=== PATIENT | female | born 1965 | race Two or more races ===

== ENCOUNTER 2019-11-08 07:50 | Day surgery (SDC) | payer OTHER ==
[~2019-11-08 07:50] MED LIST: RAYOS5 MG PO; URSODIOL PO
== END 2019-11-08 18:45 | disposition home or self-care (01) ==
LOC: CIR.AMB 07:50
DX: K60.5 Anorectal fistula (principal); K64.4 Residual hemorrhoidal skin tags

== ENCOUNTER 2020-03-13 10:06 | Day surgery (SDC) | payer OTHER | END 2020-03-13 16:58 | disposition home or self-care (01) | LOC: CIR.AMB 10:06 → ADM 14:00 → CIR.AMB 14:00 | PROVIDERS: ATTEND Colon & Rectal Surgery | DX: D12.9 Benign neoplasm of anus and anal canal (principal); K60.3 Anal fistula | CPT/HCPCS: 46285; 0184T ==

== ENCOUNTER 2021-08-19 07:10 | Outpatient (CLI) | payer OTHER | END 2021-08-19 07:25 | disposition home or self-care (01) | LOC: RX STUDY 07:10 | PROVIDERS: ATTEND Internal Medicine Gastroenterology | DX: R13.12 Dysphagia, oropharyngeal phase (principal) ==